=== PATIENT | female | born 1965 | race Caucasian/White ===

== ENCOUNTER 2016-11-16 18:23 | Emergency (ER) | payer BC ==
[2016-11-16 18:44] VITALS: BP 152/92
--- NOTE | 2016-11-16 20:17 | RAD ---
INDICATION: RIGHT upper arm pain following injury 6 days ago. COMPARISON: No relevant prior exams available on the [facility] [place] [facility] PACS for comparison. TECHNIQUE: AP, lateral, and oblique views RIGHT elbow. REPORT: Normal alignment. Slight displacement of the anterior fat pad suggesting a small effusion. Negative for fracture. Mild osteophytosis at the humeral ulnar articulation. Moderate medial and lateral enthesophytes at the epicondyles and moderate enthesophyte at the triceps insertion on the olecranon process. Mild dorsal soft tissue swelling. IMPRESSION: Osteoarthritis. Probable small effusion. No fracture evident.
--- NOTE | 2016-11-16 20:20 | RAD ---
Indication: RIGHT upper arm pain following injury 6 days ago. Comparison: No relevant prior exams available on the [facility] PACS for comparison. Technique: Internal rotation AP, external rotation Grashey, scapular Y, axillary views RIGHT shoulder Report: Normal acromioclavicular and glenohumeral joint alignment. Moderate acromial clavicular joint osteophytosis and subchondral cystic change. Small inferior acromial bone spur. Mild glenohumeral joint osteophytosis and joint space narrowing. Negative for fracture. Sclerosis at the greater tuberosity typically reflects chronic rotator cuff tendinopathy. Negative for stigmata of calcific tendinopathy. Unremarkable soft tissue contours. IMPRESSION: No radiographic evidence for traumatic RIGHT shoulder injury. Osteoarthritis. Moderate of probable chronic rotator cuff pathology.
--- NOTE | 2016-11-16 20:30 | RAD ---
INDICATION: RIGHT upper arm pain and swelling. COMPARISON: No relevant prior exams available on the [facility] [place] for comparison. TECHNIQUE: Duplex ultrasound of the RIGHT internal jugular, subclavian, axillary, brachial, radial, ulnar, basilic, and cephalic veins. With the exception of the non accessible subclavian vein compressibility of venous segments assessed. Augmentation and phasicity assessed throughout. REPORT: The deep RIGHT internal jugular, subclavian, axial, brachial, radial, and ulnar veins are patent. The superficial basilic and cephalic veins are patent. Patency of the LEFT subclavian vein documented. IMPRESSION: No evidence for RIGHT upper extremity deep venous thrombosis.
[2016-11-16] MEDS ORDERED: oxyCODONE/Acetamin 5/325 MG* TAB PO ONE (20:50)
--- NOTE | 2016-11-16 20:50 | ED ---
Upper Extremity Pain - HPI Summary HPI Summary: 51F presents with right shoulder pain for a week. She did bump her humerus a week ago. She limited overhead ROM. She does not have a history of shoulder pain. She states Tylenol and ibuprofen are not working. She states the pain radiates from her shoulder to her elbow. She states hold her arm against her makes it better. She is a smoker. She denies any history of blood clots. 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 She denies any neck pain. She denies any chest pain or SOB. - History of Current Complaint Chief Complaint: EDExtremityUpper Stated Complaint: RT SHOULDER PAIN Time Seen by Provider: 11/16/16 19:06 - Allergies/Home Medications Allergies/Adverse Reactions: Allergies Allergy/AdvReac Type Severity Reaction Status Date / Time Sulfa Antibiotics Allergy Hives Verified 11/16/16 19:15 PMH/Surg Hx/FS Hx/Imm Hx Endocrine/Hematology History: Denies: Hx Anticoagulant Therapy Respiratory History: Denies: Hx Asthma Musculoskeletal History: Denies: Hx Rheumatoid Arthritis, Hx Osteoporosis Infectious Disease History: No Infectious Disease History: Denies: Traveled Outside the [place] in Last 30 Days - Family History Known Family History: Positive: Cardiac Disease - Social History Alcohol Use: Weekly Substance Use Type: Reports: None Smoking Status (MU): Light Every Day Tobacco Smoker Review of Systems Negative: Fever Negative: Chest Pain Negative: Shortness Of Breath Positive: Myalgia - right shoulder pain All Other Systems Reviewed And Are Negative: Yes Physical Exam Triage Information Reviewed: Yes Vital Signs On Initial Exam: Initial Vitals Temp Pulse Resp BP Pulse Ox 98.6 F 82 20 152/92 96 11/16/16 18:40 11/16/16 18:40 11/16/16 18:40 11/16/16 18:40 11/16/16 18:40 Vital Signs Reviewed: Yes Appearance: Positive: Well-Appearing Skin: Positive: Warm, Dry Head/Face: Positive: Normal Head/Face Inspection Eyes: Positive: Normal, Conjunctiva Clear Respiratory/Lung Sounds: Positive: Clear to Auscultation, Breath Sounds Present Cardiovascular: Positive: Normal, RRR Musculoskeletal: Positive: Limited @ - right shoulder, Other - good pulses, capillary refill<2 secs, 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 Course/Dx - Course Course Of Treatment: 51F presents with right shoulder pain for a week. She did bump her humerus a week ago. She limited overhead ROM. She does not have a history of shoulder pain. She states Tylenol and ibuprofen are not working. She states the pain radiates from her shoulder to her elbow. She states hold her arm against her makes it better. She is a smoker. She denies any history of blood clots. on exam has tenderness across shoulder to elbow. got xray of shoulder and elbow no fx but see rotator cuff pathology. u/s normal. on exam limited ROM of shoulder. pos yearsons and beltran, neg drop arm. placed in sling and told to follow up with ortho or primary. patient understands and agrees with plan. - Diagnoses Differential Diagnosis/HQI/PQRI: Positive: Fracture (Closed), Strain, Sprain, Other - dvt Provider Diagnoses: Right shoulder pain Discharge - Discharge Plan Condition: Good Disposition: HOME Prescriptions: oxyCODONE/Acetamin 5/325 MG* [Percocet 5/325 TAB*] 1 tab PO Q6H PRN #8 tab MDD 4 PRN Reason: Pain Patient Education Materials: Shoulder Pain (ED) Referrals: [facility] [place] PHYSICIAN REFERRAL [Outside] Milton Brooks MD [Medical Doctor] - Additional Instructions: Take Tylenol and ibuprofen every 6 hours as needed for pain Ice/heat Can keep in sling but need to do range of motion activities for shoulder Follow up with primary care physician or ortho if no improvement Return to ED if develop any new or worsening symptoms
== END 2016-11-16 21:09 | disposition home or self-care (01) ==
LOC: ED 18:23
DX: M25.511 Pain in right shoulder (principal); F17.210 Nicotine dependence, cigarettes, uncomplicated
CPT/HCPCS: 99282; A9270-GY